=== PATIENT | female | born 1970 | race Caucasian/White ===

== ENCOUNTER 2016-09-22 11:43 | Emergency (ER) | payer BC ==
[~2016-09-22] VITALS: Ht 170.2 cm; Wt 84.5 kg
[~2016-09-22 11:43] MED LIST: HYDR-3129 PO
[2016-09-22 11:50] VITALS: BP 123/88; PULSE 77; RESP 16; TEMP 98.5; O2SAT 98
[2016-09-22] MEDS ORDERED: LISI10TA3 PO (12:02)
[2016-09-22] MEDS ORDERED: OMEP20TA PO (12:02)
[2016-09-22] MEDS ORDERED: HYDR-3533 PO (12:02)
--- NOTE | 2016-09-22 12:19 | PD ---
HPI Chief Complaint: Injury Time Seen by Provider: 12:08 Travel History International Travel<30 days: No Contact w/Intl Traveler<30days: No Traveled to known affect area: No History of Present Illness HPI 46-year-old female complains of left hand pain. Patient states that she had a metal chain around the left hand and was holding her dog 2 days ago. Patient states that the dog took off and the metal chain squeezed her left hand. Patient states that she had persistent sharp pain localized to left hand especially over the fourth and fifth metacarpals since then. Patient denies any other injury. On a scale of 1-10 the pain is a 7. PFSH Past Medical History Arthritis: Yes Blood Disorders: No Anxiety: Yes Depression: No Cancer: No Cardiovascular Problems: Yes Diabetes: No Diminished Hearing: No Endocrine: No Gastrointestinal Disorders: No Glaucoma: No Genitourinary: No Hepatitis: No Hiatal Hernia: No Hypertension: Yes Immune Disorder: No Implanted Vascular Access Dvce: No Musculoskeletal: Yes (CHRONIC BACK PAIN) Neurologic: No Psychiatric: No Reproductive: Yes (S/P HYSTERECTOMY) Respiratory: No Thyroid Disease: No ?: Not Menopausal: Yes : 6 Para: 3 Miscarriage: 3 : 0 Ovarian Cysts: Yes (LEFT OVARIAN CYST) Dilation and Curettage (D&C): Yes (X6) Past Surgical History Section: Yes (XE) Gynecologic Surgery: Yes (D&C-C SECTION X 3-LAPAROSCOPY FOR ADHESION) Hysterectomy: Yes Pacemaker: No Other Surgery: Yes Social History Alcohol Use: Yes (OCCASIONALLY) Tobacco Use: No (quit 2013) Substance Use: No Allergies-Medications (Allergen,Severity, Reaction): Coded Allergies: Dilaudid (Verified Allergy, Severe, hives, 09/22/16) Dimetapp (Verified Allergy, Severe, Hives, 09/22/16) Reported Meds & Prescriptions Reported Meds & Active Scripts Active Reported Omeprazole 20 Mg Tab 20 Mg PO DAILY Lisinopril 10 Mg Tab 10 Mg PO DAILY Lortab (Hydrocodone-Acetaminophen) 5-325 Mg Tab 1 Tab PO Q6H PRN Review of Systems General / Constitutional: No: Fever Eyes: No: Visual changes HENT: No: Headaches Cardiovascular: No: Chest Pain or Discomfort Respiratory: No: Shortness of Breath Gastrointestinal: No: Abdominal Pain Genitourinary: No: Dysuria Musculoskeletal: Positive: Pain Skin: No Rash Neurologic: No: Weakness Psychiatric: No: Depression Endocrine: No: Polydipsia Hematologic/Lymphatic: No: Easy Bruising Physical Exam Narrative GENERAL: Well-nourished, well-developed patient. SKIN: Focused skin assessment warm/dry. HEAD: Normocephalic. EYES: No scleral icterus. No injection or drainage. NECK: Supple, trachea midline. No JVD or lymphadenopathy. CARDIOVASCULAR: Regular rate and rhythm without murmurs, gallops, or rubs. RESPIRATORY: Breath sounds equal bilaterally. No accessory muscle use. GASTROINTESTINAL: Abdomen soft, non-tender, nondistended. MUSCULOSKELETAL: No cyanosis, or edema. BACK: Nontender without obvious deformity. No CVA tenderness. Patient has moderate tenderness to palpation left hand fourth and fifth metacarpal area with mild soft tissue swelling noted. Full range of motion of the fingers. Data Data Last Documented VS Vital Signs Date Time Temp Pulse Resp B/P Pulse Ox O2 Delivery O2 Flow Rate FiO2 09/22/16 11:57 98 Room Air 09/22/16 11:50 98.5 77 16 123/88 Orders Hand, Complete ([id number]) (09/22/16 12:11) Splint Or Brace Apply/Monitor (09/22/16 13:10) MDM Medical Decision Making Medical Screen Exam Complete: Yes Emergency Medical Condition: Yes Interpretation(s) Last Impressions Hand X-Ray 09/22/16 1211 Signed Impressions: Service Date/Time: , September 22, 2016 12:18 - CONCLUSION: No acute fracture or joint dislocation. Mike Hughes MD Differential Diagnosis Differential diagnosis including contusion, fracture. Narrative Course 46-year-old female with left hand injury. Diagnosis Primary Impression: Contusion of left hand Qualified Code: S60.222A - Contusion of left hand, initial encounter Patient Instructions: General Instructions Additional Instructions: Take medication as needed for pain. Follow-up with orthopedist if persistent problem. Med/Other Pt SpecificInfo: Prescription(s) given Scripts Tramadol (Ultram)50 Mg Tab50 Mg PO Q6H PRN (PAIN) #20 TAB Ref 0 Prov:Yifan Cabello MD 09/22/16 Meloxicam (Mobic)15 Mg Tab15 Mg PO DAILY #20 TAB Prov:Yifan Cabello MD 09/22/16 Disposition: 01 DISCHARGE HOME Condition: Stable Yifan Cabello MD Sep 22, 2016 12:19
--- NOTE | 2016-09-22 12:59 | RADRPT ---
EXAM DATE/TIME: 09/22/2016 12:18 [facility] COMPARISON: No previous studies available for comparison. INDICATIONS : Left hand pain, dog leash was wrapped around her hand and dog took off and pulled her. MEDICAL HISTORY : None. SURGICAL HISTORY : None. ENCOUNTER: Initial ACUITY: 3 days PAIN SCORE: 4/10 LOCATION: Left hand 4th and 5th metacarpal FINDINGS: Three view examination of the left hand demonstrates no soft tissue swelling, dislocation, or fractur e. The carpal bones appear intact. The interphalangeal and metacarpophalangeal joints are intact. Bony mineralization is normal. CONCLUSION: No acute fracture or joint dislocation. Mike Hughes MD on September 22, 2016 at 12:56 Board Certified Radiologist. This report was verified electronically.
[2016-09-22] MEDS ORDERED: MOBI15TA PO (13:12)
[2016-09-22] MEDS ORDERED: ULTR50TA5 PO (13:12)
== END 2016-09-22 13:19 | disposition home or self-care (01) ==
LOC: PHEFT 11:43
DX: S60.222A Contusion of left hand, initial encounter (principal); W23.0XXA Caught, crushed, jammed, or pinched between moving objects, initial encounter; Y93.K1 Activity, walking an animal
CPT/HCPCS: 73130; 99284

== ENCOUNTER 2016-12-06 02:43 | Observation (INO) | payer BC ==
[~2016-12-06] VITALS: Ht 170.2 cm; Wt 83.6 kg
[2016-12-06] VITALS (15 sets, daily range): BP systolic 125–206; BP diastolic 77–114; PULSE 69–86; RESP 16–20; TEMP 97.6–98.4; O2SAT 95–100
[~2016-12-06 02:43] MED LIST changes: -HYDR-3129 PO; +HYDR-3533 PO; +LISI10TA3 PO; +MOBI15TA PO; +OMEP20TA PO; +ULTR50TA5 PO
[2016-12-06] MEDS ORDERED: ASPIRIN 81 MG CHEW TAB PO SCH (03:30)
[2016-12-06] MEDS ORDERED: NITROGLYCERIN 0.4 MG SL 25 TABS/BTL SL PRN (03:30)
[2016-12-06 03:37] LABS: CHLORIDE 102 MEQ/L (98-107); POTASSIUM 3.6 MEQ/L (3.5-5.1); SODIUM (NA) 136 MEQ/L (136-145)
[2016-12-06 03:38] LABS: BASOPHIL # 0.1 TH/MM3 (0-0.2); EOSINOPHIL # 0.2 TH/MM3 (0-0.4); EOSINOPHIL % 2.5 % (0.0-4.0); HEMO FLAGS DIFF FINAL; LYMPHOCYTE # 2.7 TH/MM3 (1.0-4.8); MEAN CELL VOLUME 85.3 FL (80.0-100.0); MEAN CORPUSCULAR HEMOGLOBIN 28.7 PG (27.0-34.0); MEAN CORPUSCULAR HGB CONC 33.7 % (32.0-36.0); MONO % 9.6 % (0.0-8.0); NEUT % 52.9 % (16.0-70.0); PLATELET COUNT 274 TH/MM3 (150-450); RED BLOOD COUNT 4.93 MIL/MM3 (4.00-5.30); RED CELL DISTRIBUTION WIDTH 12.6 % (11.6-17.2); WHITE BLOOD COUNT 7.8 TH/MM3 (4.0-11.0)
[2016-12-06 03:40] LABS: ANION GAP 8 MEQ/L (5-15); BICARBONATE 25.7 MEQ/L (21.0-32.0); BLOOD UREA NITROGEN 16 MG/DL (7-18)
[2016-12-06 03:41] LABS: APTT (PATIENT) 29.6 SEC (24.3-30.1); PROTHROMBIN TIME - PATIENT 11.2 SEC (9.8-11.6)
[2016-12-06 03:44] LABS: GLOMERULAR FILTRATION RATE 84 ML/MIN (>89)
[2016-12-06 03:58] LABS: CREATINE KINASE 45 U/L (26-192)
--- NOTE | 2016-12-06 04:00 | PD ---
HPI Chief Complaint: Chest Pain Time Seen by Provider: 03:58 Travel History International Travel<30 days: No Contact w/Intl Traveler<30days: No Traveled to known affect area: No History of Present Illness HPI 46-year-old female presents to the emergency department by private transportation for complaint of intermittent anterior chest chest pain since midnight. Patient states that she attempted taking a shower and some antacid but did not take any aspirin prior to arrival to the emergency for. Patient has history of hypertension but denies dyslipidemia or diabetes. Patient also has family history of cardiovascular disease. Currently pain is much 2/10 intensity at worst is 11/10 in intensity. Nausea no vomiting shortness of breath sweats referred pain to the back but no referred pain to neck jaw shoulders or arms or abdomen. Abdomen is nontender. Hematemesis or coffee- ground emesis no bilious emesis. No flank pain or dysuria or hematuria. Unable to identify exacerbating or alleviating factors. PFSH Past Medical History Narrative Medical Hypertension arthritis anxiety Arthritis: Yes Blood Disorders: No Anxiety: Yes Depression: No Cancer: No Cardiovascular Problems: Yes Diabetes: No Diminished Hearing: No Diverticulitis: Yes Endocrine: No Gastrointestinal Disorders: No Glaucoma: No Genitourinary: No Hepatitis: No Hiatal Hernia: No Hypertension: Yes Immune Disorder: No Implanted Vascular Access Dvce: No Musculoskeletal: Yes (CHRONIC BACK PAIN) Neurologic: No Psychiatric: No Reproductive: Yes (S/P HYSTERECTOMY) Respiratory: No Thyroid Disease: No Influenza Vaccination: No ?: Not Menopausal: Yes : 6 Para: 3 Miscarriage: 3 : 0 Ovarian Cysts: Yes (LEFT OVARIAN CYST) Dilation and Curettage (D&C): Yes (X6) Past Surgical History Section: Yes (XE) Gynecologic Surgery: Yes (D&C-C SECTION X 3-LAPAROSCOPY FOR ADHESION) Hysterectomy: Yes Pacemaker: No Other Surgery: Yes Social History Alcohol Use: Yes (OCCASIONALLY) Tobacco Use: No (quit 2013) Substance Use: No Allergies-Medications (Allergen,Severity, Reaction): Coded Allergies: brompheniramine (Verified Allergy, Severe, Hives, 12/06/16) hydromorphone (Verified Allergy, Severe, hives, 12/06/16) phenylpropanolamine (Verified Allergy, Severe, Hives, 12/06/16) Reported Meds & Prescriptions Reported Meds & Active Scripts Active Reported Wellbutrin Xl 24 HR (Bupropion HCl) 150 Mg Tab 150 Mg PO DAILY Omeprazole 20 Mg Tab 20 Mg PO DAILY Lisinopril 10 Mg Tab 10 Mg PO DAILY Lortab (Hydrocodone-Acetaminophen) 5-325 Mg Tab 1 Tab PO Q6H PRN Review of Systems Except as stated in HPI: all other systems reviewed are Neg Physical Exam Narrative GENERAL: Well-developed well-nourished male in no acute distress no respiratory distress; GCS 15 SKIN: Warm and dry. HEAD: Normocephalic. EYES: No scleral icterus. No injection or drainage. NECK: Supple, trachea midline. No JVD or lymphadenopathy. CARDIOVASCULAR: Regular rate and rhythm without murmurs, gallops, or rubs. Chest wall: Nontender to palpation RESPIRATORY: Breath sounds equal bilaterally. No accessory muscle use. GASTROINTESTINAL: Abdomen soft, non-tender, nondistended. MUSCULOSKELETAL: No cyanosis, or edema. BACK: Nontender without obvious deformity. No CVA tenderness. Data Data Last Documented VS Vital Signs Date Time Temp Pulse Resp B/P (MAP) Pulse Ox O2 Delivery O2 Flow Rate FiO2 12/06/16 05:00 75 16 144/81 (102) 98 Room Air 12/06/16 02:50 98.4 Orders Orders Aspirin Chew (Aspirin Chew) (12/06/16 03:30) Basic Metabolic Panel (Bmp) (12/06/16 03:26) Ckmb (Isoenzyme) Profile (12/06/16 03:26) Magnesium (Mg) (12/06/16 03:26) Troponin I (12/06/16 03:26) Act Partial Throm Time (Ptt) (12/06/16 03:26) Prothrombin Time / Inr (Pt) (12/06/16 03:26) Nitroglycerin Sl (Nitrostat Sl) (12/06/16 03:30) Complete Blood Count With Diff (12/06/16 03:30) Chest, Single Ap (12/06/16 ) Admit Order (Ed Use Only) (12/06/16 ) ^ Saline Lock (12/06/16 04:58) Resp Oxygen Berto C Titrat 1-4 L (12/06/16 ) Notify Dr: Other (12/06/16 04:58) Sodium Chloride 0.9% Flush (Ns Flush) (12/06/16 09:00) Sodium Chloride 0.9% Flush (Ns Flush) (12/06/16 05:00) Place In Observation (12/06/16 04:58) Activity Bed Rest With Brp (12/06/16 04:58) Vital Signs (Adult) Q4H (12/06/16 04:58) Cardiac Rhythm .As Directed (12/06/16 04:58) Notify Dr: Other .PRN (12/06/16 04:58) Notify Dr. Parameters (12/06/16 04:58) Resp Oxygen Nasal Cannula (12/06/16 ) Diet Npo (12/06/16 Breakfast) Ckmb (Isoenzyme) Profile (12/06/16 06:00) Ckmb (Isoenzyme) Profile (12/06/16 09:00) Troponin I (12/06/16 06:00) Troponin I (12/06/16 09:00) Electrocardiogram (12/06/16 06:00) Electrocardiogram (12/06/16 09:00) ^ Obtain (12/06/16 04:58) Sodium Chloride 0.9% Flush (Ns Flush) (12/06/16 05:00) Sodium Chloride 0.9% Flush (Ns Flush) (12/06/16 09:00) Outbound Telemarketing Representative / Telemetry [place].Q8H (12/06/16 04:58) Labs Laboratory Tests Test 12/06/16 03:00 White Blood Count 7.8 TH/MM3 Red Blood Count 4.93 MIL/MM3 Hemoglobin 14.1 GM/DL Hematocrit 42.0 % Mean Corpuscular Volume 85.3 FL Mean Corpuscular Hemoglobin 28.7 PG Mean Corpuscular Hemoglobin Concent 33.7 % Red Cell Distribution Width 12.6 % Platelet Count 274 TH/MM3 Mean Platelet Volume 8.9 FL Neutrophils (%) (Auto) 52.9 % Lymphocytes (%) (Auto) 34.0 % Monocytes (%) (Auto) 9.6 % Eosinophils (%) (Auto) 2.5 % Basophils (%) (Auto) 1.0 % Neutrophils # (Auto) 4.0 TH/MM3 Lymphocytes # (Auto) 2.7 TH/MM3 Monocytes # (Auto) 0.8 TH/MM3 Eosinophils # (Auto) 0.2 TH/MM3 Basophils # (Auto) 0.1 TH/MM3 CBC Comment DIFF FINAL Differential Comment Prothrombin Time 11.2 SEC Prothromb Time International Ratio 1.0 RATIO Activated Partial Thromboplast Time 29.6 SEC Blood Urea Nitrogen 16 MG/DL Creatinine 0.74 MG/DL Random Glucose 98 MG/DL Calcium Level 8.8 MG/DL Magnesium Level 2.0 MG/DL Sodium Level 136 MEQ/L Potassium Level 3.6 MEQ/L Chloride Level 102 MEQ/L Carbon Dioxide Level 25.7 MEQ/L Anion Gap 8 MEQ/L Estimat Glomerular Filtration Rate 84 ML/MIN Total Creatine Kinase 45 U/L Troponin I LESS THAN 0.02 NG/ML MDM Medical Decision Making Medical Screen Exam Complete: Yes Emergency Medical Condition: Yes Medical Record Reviewed: Yes Interpretation(s) EKG: Normal sinus rhythm rate [address] elevation or injury pattern change noted Differential Diagnosis Chest pain, atypical chest pain, ACS, [place], esophageal spasm, biliary colic, gastritis, cholecystectomy Narrative Course Patient placed on lunchroom monitor IV access obtained specimens collected and sent for resulting patient administered aspirin 162 mg times one dose along with sublingual nitroglycerin every 5 minutes as needed for chest pain and to hold for systolic pressure less than 100 mmHg or greater EKG sinus rhythm no acute injury pattern change first of cardiac enzymes returned within normal range; chest x-ray shows no evidence of pneumothorax or infiltrate. CBC & BMP Diagram 12/06/16 03:00 Calcium Level 8.8, Magnesium Level 2.0 Chest pain-free asymptomatic after 2 sublingual nitroglycerin patient is aware of lab results including normal range values of the cardiac enzymes Plan will be to admit to chest pain center per protocol patient risk factors hypertension family history of early onset heart disease. Physician Communication Physician Communication [facility] per protocol Diagnosis Primary Impression: Chest pain Admitting Information Admitting Physician Requests: Observation Mone Ferguson MD Dec 06, 2016 04:00
[2016-12-06] MEDS ORDERED: BUPR150XL PO (04:07)
[2016-12-06] MEDS ORDERED: SODIUM CHLORIDE 0.9% FLUSH 10 ML FLUSH IV FLUSH PRN (05:00)
[2016-12-06] MEDS ORDERED: SODIUM CHLORIDE 0.9% FLUSH 10 ML FLUSH IVF PRN (05:00)
[2016-12-06 06:40] LABS: CREATINE KINASE 33 U/L (26-192)
--- NOTE | 2016-12-06 08:28 | RADRPT ---
EXAM DATE/TIME: 12/06/2016 03:22 [facility] COMPARISON: No previous studies available for comparison. INDICATIONS : Chest pain. MEDICAL HISTORY : Hypertension. SURGICAL HISTORY : None. ENCOUNTER: Initial ACUITY: 1 day PAIN SCORE: 6/10 LOCATION: Left chest FINDINGS: A single view of the chest demonstrates the lungs to be symmetrically aerated without evidence of mas s, infiltrate or effusion. The cardiomediastinal contours are unremarkable. Osseous structures are intact. CONCLUSION: Normal examination. Seth Smalls Jr., MD on December 06, 2016 at 4:48 Board Certified Radiologist. This report was verified electronically.
[2016-12-06] MEDS: SODIUM CHLORIDE 0.9% FLUSH 10 ML FLUSH IV FLUSH SCH ×2 (09:00→20:28)
[2016-12-06] MEDS ORDERED: SODIUM CHLORIDE 0.9% FLUSH 10 ML FLUSH IV FLUSH SCH (09:00)
[2016-12-06 09:27] LABS: CREATINE KINASE 35 U/L (26-192)
--- NOTE | 2016-12-06 13:55 | EKG ---
Date Performed: 12/06/2016 Time Performed: 02:53:55 PTAGE: 46 years EKG: Sinus rhythm MINIMAL ST DEPRESSION BORDERLINE ECG NO PREVIOUS TRACING DOCTOR: Gustavo Castano Interpretating Date/Time 12/06/2016 13:54:31
--- NOTE | 2016-12-06 14:00 | EKG ---
Date Performed: 12/06/2016 Time Performed: 08:49:30 PTAGE: 46 years EKG: Sinus rhythm NORMAL ECG Compared to prior tracing no significant change PREVIOUS TRACING : 12/06/2016 06.04 DOCTOR: Gustavo Castano Interpretating Date/Time 12/06/2016 13:59:21
--- NOTE | 2016-12-06 14:00 | EKG ---
Date Performed: 12/06/2016 Time Performed: 06:04:52 PTAGE: 46 years EKG: Sinus rhythm NONSPECIFIC T-WAVE ABNORMALITY BORDERLINE ECG NO PREVIOUS TRACING DOCTOR: Gustavo Castano Interpretating Date/Time 12/06/2016 13:59:13
--- NOTE | 2016-12-06 14:56 | HHI.HP ---
[facility] Primary Care Physician Stoney Santos M.D. Admission Diagnosis chest pain Diagnoses: (1) Chest pain Diagnosis: Principal (2) Hypertensive urgency Diagnosis: Principal Chief Complaint: chest pain Travel History International Travel<30 Days: No Contact w/Intl Traveler <30 Da: No Traveled to Known Affected Are: No History of Present Illness Written by Thalia Stone PA-C acting as scribe for Dr. Medina on 12/06/16 at 1456. 46-year-old female with history of hypertension and chronic back pain is admitted chest pain center. Patient states she had pain in the right breast which radiated to the epigastric region starting at midnight last night. She states she waited but then it occurred again at 2:30 AM. She describes it's a "tightening" and felt like something was wrapped around her "crushing" and "pulling". She states the pain would come and go lasting 3-8 minutes but then subside. She states it stopped after she came to the ER stating nitroglycerin helped only having a few more minor episodes afterward, but it is not documented that patient received Nitro. She denies any alleviating or exacerbating factors. She denies any associated diaphoresis, palpitations, shortness of breath, or nausea. She takes blood pressure medication and states her blood pressure has been up "a little high". Patient admits to having some left breast pain that started today. She states she gets her yearly mammogram and either had it in May or is due for it in one month. No personal history of diabetes or high cholesterol. Review of Systems Except as stated in HPI: all other systems reviewed are Neg Past Family Social History Past Medical History Hypertension Bulging discs L4-5 Occasional heartburn States she was prescribed Wellbutrin for "stress" Past Surgical History 3 C-sections Multiple D&Cs Hysterectomy Laparoscopy for adhesions Reported Medications Wellbutrin Xl 24 HR (Bupropion HCl) 150 Mg Tab 150 Mg PO DAILY Omeprazole 20 Mg Tab 20 Mg PO DAILY PRN Lisinopril 10 Mg Tab 10 Mg PO DAILY Lortab (Hydrocodone-Acetaminophen) 5-325 Mg Tab 1 Tab PO Q6H PRN Allergies: Coded Allergies: brompheniramine (Verified Allergy, Severe, Hives, 12/06/16) hydromorphone (Verified Allergy, Severe, hives, 12/06/16) phenylpropanolamine (Verified Allergy, Severe, Hives, 12/06/16) Family History Grandmother of MO at age 57. Mother of breast cancer at age 48. Social History Occasional alcohol use. Quit smoking cigarettes 4 years ago. Prior to this smoked less than one pack per day for approximately 20 years. Denies illicit drug use. Physical Exam Vital Signs Vital Signs Date Time Temp Pulse Resp B/P (MAP) Pulse Ox O2 Delivery O2 Flow Rate FiO2 12/06/16 12:00 97.6 70 17 142/95 (111) 97 12/06/16 11:33 96 12/06/16 08:00 98.1 79 17 125/82 (96) 96 12/06/16 08:00 81 12/06/16 07:38 12/06/16 07:03 75 18 136/84 (101) 98 Room Air 12/06/16 06:58 75 12/06/16 05:00 75 16 144/81 (102) 98 Room Air 12/06/16 03:59 72 18 130/77 (94) 97 Room Air 12/06/16 03:28 79 18 137/83 (101) 96 Room Air 12/06/16 03:22 79 20 158/91 (113) 97 Room Air 12/06/16 03:17 86 20 141/91 (108) 97 Room Air 12/06/16 03:12 83 20 167/98 (121) 95 Room Air 12/06/16 02:55 86 20 100 Room Air 12/06/16 02:50 98.4 86 20 206/114 (144) 100 Physical Exam GENERAL: This is a pleasant well-nourished, well-developed patient, in no apparent distress. SKIN: No rashes, ecchymoses or lesions. Warm and dry. HEAD: Atraumatic. Normocephalic. EYES:No scleral icterus. No injection or drainage. NECK: Trachea midline. BREAST EXAM: Right breast with no palpable masses. Tender over left lateral breast. ~0.5 cm x 0.3 cm hard nodule at the 6 o'clock position below the left nipple. CARDIOVASCULAR: Regular rate and rhythm without murmurs, gallops, or rubs. RESPIRATORY: Clear to auscultation. Breath sounds equal bilaterally. No wheezes , rales, or rhonchi. GASTROINTESTINAL: Normoactive bowel sounds. Abdomen soft, non-tender, nondistended. MUSCULOSKELETAL: No lower extremity edema or calf pain bilaterally. NEUROLOGICAL: Awake and alert. Motor grossly within normal limits. Normal speech. PSYCHIATRIC: Normal mood and affect. Laboratory Laboratory Tests Test 12/06/16 03:00 12/06/16 06:10 12/06/16 08:45 White Blood Count 7.8 Red Blood Count 4.93 Hemoglobin 14.1 Hematocrit 42.0 Mean Corpuscular Volume 85.3 Mean Corpuscular Hemoglobin 28.7 Mean Corpuscular Hemoglobin Concent 33.7 Red Cell Distribution Width 12.6 Platelet Count 274 Mean Platelet Volume 8.9 Neutrophils (%) (Auto) 52.9 Lymphocytes (%) (Auto) 34.0 Monocytes (%) (Auto) 9.6 Eosinophils (%) (Auto) 2.5 Basophils (%) (Auto) 1.0 Neutrophils # (Auto) 4.0 Lymphocytes # (Auto) 2.7 Monocytes # (Auto) 0.8 Eosinophils # (Auto) 0.2 Basophils # (Auto) 0.1 CBC Comment DIFF FINAL Differential Comment Prothrombin Time 11.2 Prothromb Time International Ratio 1.0 Activated Partial Thromboplast Time 29.6 Blood Urea Nitrogen 16 Creatinine 0.74 Random Glucose 98 Calcium Level 8.8 Magnesium Level 2.0 Sodium Level 136 Potassium Level 3.6 Chloride Level 102 Carbon Dioxide Level 25.7 Anion Gap 8 Estimat Glomerular Filtration Rate 84 Total Creatine Kinase 45 33 35 Troponin I LESS THAN 0.02 LESS THAN 0.02 LESS THAN 0.02 Result Diagram: 12/06/16 0300 12/06/16 0300 Imaging Last Impressions Chest X-Ray 12/06/16 0000 Signed Impressions: Service Date/Time: Tuesday, December 06, 2016 03:22 - CONCLUSION: Normal examination. MD Chyna Wilde Jr. VTE Risk Assessment Chyna VTE Risk Assessment: Mod/High Risk (score >= 2) Caprini Risk Assessment Model Point Value = 1 Point Value = 2 Point Value = 3 Point Value = 5 Age 41-60 Minor surgery BMI > 25 kg/m2 Swollen legs Varicose veins or History of unexplained or recurrent spontaneous Oral contraceptives or hormone replacement Sepsis (< 1 month) Serious lung disease, including pneumonia (< 1 month) Abnormal pulmonary function Acute myocardial infarction Congestive heart failure (< 1 month) History of inflammatory bowel disease Medical patient at bed rest Age 61-74 Arthroscopic surgery Major open surgery (> 45 min) Laparoscopic surgery (> 45 min) Malignancy Confined to bed (> 72 hours) Immobilizing plaster cast Central venous access Age >= 75 History of VTE Family history of VTE Factor V Leiden Prothrombin 29256P Lupus anticoagulant Anticardiolipin antibodies Elevated serum homocysteine Heparin-induced thrombocytopenia Other congenital or acquired thrombophilia Stroke (< 1 month) Elective arthroplasty Hip, pelvis, or leg fracture Acute spinal cord injury (< 1 month) Prophylaxis Regimen Total Risk Factor Score Risk Level Prophylaxis Regimen 0-1 Low Early ambulation 2 Moderate Order ONE of the following: *Sequential Compression Device (SCD) *Heparin 5000 units SQ BID 3-4 Higher Order ONE of the following medications: *Heparin 5000 units SQ TID *Enoxaparin/Lovenox 40 mg SQ daily (WT < 150 kg, CrCl > 30 mL/min) *Enoxaparin/Lovenox 30 mg SQ daily (WT < 150 kg, CrCl > 10-29 mL/min) *Enoxaparin/Lovenox 30 mg SQ BID (WT < 150 kg, CrCl > 30 mL/min) AND/OR *Sequential Compression Device (SCD) 5 or more Highest Order ONE of the following medications: *Heparin 5000 units SQ TID (Preferred with Epidurals) *Enoxaparin/Lovenox 40 mg SQ daily (WT < 150 kg, CrCl > 30 mL/min) *Enoxaparin/Lovenox 30 mg SQ daily (WT < 150 kg, CrCl > 10-29 mL/min) *Enoxaparin/Lovenox 30 mg SQ BID (WT < 150 kg, CrCl > 30 mL/min) AND *Sequential Compression Device (SCD) Assessment and Plan Assessment and Plan 46-year-old female with: Chest pain: Right breast radiating to epigastric region with some reproducible left breast tenderness today. EKGs 3 personally interpreted with normal sinus rhythm and no evidence of ischemia. Chest x-ray personally interpreted without acute abnormality. Troponin 3 less than 0.02. CK 3 normal. CBC unremarkable. -Patient received 162 mg of aspirin early this morning -Nitroglycerin as needed for chest pain -Telemetry -Patient is unable to jog but despite chronic back issues states she can walk on an incline and is willing to perform the treadmill test as she walks daily. ETT ordered. Hypertensive urgency/HTN: BP 206/114 on arrival. Improved today. -Continue Lisinopril Continue other home meds. DVT prophylaxis: SCDs. This note was transcribed by piper Stone. I, Dr. Chau Fuller personally performed the history, physical exam, and medical decision making; and confirmed the accuracy of the information in the transcribed note. Authenticated by Dr. Chau Fuller on 12/06/16 at 15:10. Discussed Condition With patient Thalia Stone Dec 06, 2016 14:56 Chau Kline MD Dec 06, 2016 17:02
[2016-12-06] MEDS ORDERED: ACETAMINOPHEN/HYDROcodone 325 MG/5 MG TAB PO PRN (15:45)
[2016-12-06] MEDS: buPROPion HCL 150 MG SUSTAINED RELEASE TAB PO SCH (16:10)
[2016-12-06] MEDS ORDERED: ACETAMINOPHEN 325 MG TAB PO PRN (20:15)
[2016-12-06] MEDS ORDERED: cloNIDine HCL 0.1 MG TAB PO PRN (21:00)
[2016-12-07] VITALS: BP 151/89; PULSE 84; RESP 20; TEMP 98.6; O2SAT 97
[2016-12-07 04:00] VITALS: BP 135/83; PULSE 79; RESP 20; TEMP 97.7; O2SAT 97
[2016-12-07] MEDS ORDERED: REGADENOSON INJ 0.4 MG/5 ML SYR IV ONE (05:01)
[2016-12-07 07:00] VITALS: PULSE 101
[2016-12-07 08:00] VITALS: BP 153/85; PULSE 79; RESP 18; TEMP 98.3; O2SAT 94
[2016-12-07] MEDS ORDERED: PANTOPRAZOLE SOD 20 MG DELAYED RELEASE TAB PO SCH (09:00)
[2016-12-07] MEDS ORDERED: LISINOPRIL 10 MG TAB PO SCH (09:00)
[2016-12-07 12:00] VITALS: BP 141/82; PULSE 81; RESP 17; TEMP 98.2; O2SAT 97
[2016-12-07] MEDS: SODIUM CHLORIDE 0.9% FLUSH 10 ML FLUSH IV FLUSH SCH (12:09)
[2016-12-07] MEDS: buPROPion HCL 150 MG SUSTAINED RELEASE TAB PO SCH ×2 (12:09→12:10)
--- NOTE | 2016-12-07 12:12 | RADRPT ---
EXAM DATE/TIME: 12/07/2016 10:52 [place] COMPARISON: No previous studies available for comparison. INDICATIONS : Chest pain with nausea. Abnormal exercise treadmill test. DOSE: 27.2 mCi Tc99m Myoview at stress. 8.7 mCi Tc99m Myoview at rest. 0.4 mg Lexiscan STRESS SYMPTOMS: Dyspnea, facial flush and nausea. EJECTION FRACTION: 57% MEDICAL HISTORY : Hypertension. SURGICAL HISTORY : Hysterectomy. ENCOUNTER: Initial ACUITY: 1 day PAIN SCALE: 7/10 LOCATION: chest TECHNIQUE: The patient underwent pharmacologic stress with infusion of prescribed dose. Continuous ECG tracing was monitored during stress. Gated SPECT imaging was performed after stress and conventional SPECT i maging was performed at rest. The examination was performed on a SPECT/CT scanner, both attenuation and non-corrected datasets were reviewed. FINDINGS: Moderate gut activity does obscure the inferior wall. At stress the best perfused myocardium is the lateral wall followed by the septum. There is no redis tribution to suggest ischemia of inferior wall is obscured by gut. Correlation is suggested. The ejection fraction is 57% with normal wall motion. CONCLUSION: Negative for stress-induced ischemia however do not does obscure the inferior wall. Ejection fractio n 57% with normal wall motion. Correlation is suggested given the abnormal treadmill. RISK CATEGORY: Low (<1% Annual Mortality Rate) Kd Abreu MD FACR on December 07, 2016 at 12:09 Board Certified Radiologist. This report was verified electronically.
--- NOTE | 2016-12-07 12:26 | HHI.DCPOC ---
Discharge Care Plan Diagnosis: (1) Chest pain (2) Hypertensive urgency Goals to Promote Your Health * To prevent worsening of your condition and complications * To maintain your health at the optimal level Directions to Meet Your Goals Take your medications as prescribed Follow your dietary instruction Follow activity as directed Keep your appointments as scheduled Take your immunizations and boosters as scheduled If your symptoms worsen call your PCP, if no PCP go to Urgent Care Center or Emergency Room Smoking is Dangerous to Your Health. Avoid second hand smoke Call the 24-hour hour crisis hotline for domestic abuse at Bernadette Barnhart MD Dec 07, 2016 12:26
--- NOTE | 2016-12-07 12:30 | HHI.DS ---
[facility] Discharge Summary Admission Date Dec 06, 2016 at 05:00 Discharge Date: Dec 07, 2016 Admitting Diagnosis chest pain (1) Chest pain ICD Code: R07.9 - Chest pain, unspecified Diagnosis: Principal Status: Acute (2) Hypertensive urgency ICD Code: I16.0 - Hypertensive urgency Diagnosis: Principal Procedures nuclear st Exercise ST Brief History - From Admission Written by Thalia Stone PA-C acting as scribe for Dr. Medina on 12/06/16 at 1456. 46-year-old female with history of hypertension and chronic back pain is admitted chest pain center. Patient states she had pain in the right breast which radiated to the epigastric region starting at midnight last night. She states she waited but then it occurred again at 2:30 AM. She describes it's a "tightening" and felt like something was wrapped around her "crushing" and "pulling". She states the pain would come and go lasting 3-8 minutes but then subside. She states it stopped after she came to the ER stating nitroglycerin helped only having a few more minor episodes afterward, but it is not documented that patient received Nitro. She denies any alleviating or exacerbating factors. She denies any associated diaphoresis, palpitations, shortness of breath, or nausea. She takes blood pressure medication and states her blood pressure has been up "a little high". Patient admits to having some left breast pain that started today. She states she gets her yearly mammogram and either had it in May or is due for it in one month. No personal history of diabetes or high cholesterol. CBC/BMP: 12/06/16 0300 12/06/16 0300 Significant Findings Laboratory Tests Test 12/06/16 03:00 12/06/16 06:10 12/06/16 08:45 Monocytes (%) (Auto) 9.6 % (0.0-8.0) Estimat Glomerular Filtration Rate 84 ML/MIN (>89) Troponin I LESS THAN 0.02 NG/ML LESS THAN 0.02 NG/ML LESS THAN 0.02 NG/ML Imaging Last Impressions Myocardial Perfusion Scan Nuc Med 12/07/16 0600 Signed Impressions: Service Date/Time: Wednesday, December 07, 2016 10:52 - CONCLUSION: Negative for stress-induced ischemia however do not does obscure the inferior wall. Ejection fraction 57%% with normal wall motion. Correlation is suggested given the abnormal treadmill. RISK CATEGORY: Low (<1%% Annual Mortality Rate) Kd Abreu MD FACR Chest X-Ray 12/06/16 0000 Signed Impressions: Service Date/Time: Tuesday, December 06, 2016 03:22 - CONCLUSION: Normal examination. Seth Smalls Jr., MD PE at Discharge GENERAL: This is a well-nourished, well-developed patient, in no apparent distress. CARDIOVASCULAR: Regular rate and rhythm without murmurs, gallops, or rubs. RESPIRATORY: Clear to auscultation. Breath sounds equal bilaterally. No wheezes , rales, or rhonchi. GASTROINTESTINAL: Abdomen soft, non-tender, nondistended. Normal active bowel sounds MUSCULOSKELETAL: Extremities without clubbing, cyanosis, or edema. NEURO: Alert & Oriented x4 to person, place, time, situation. Moves all ext x4 Pt update on day of discharge Patient seen today vague atypical CP this am prior to St. DC plans discussed with patient and RN Hospital Course patient seen in evaluation for atypical CP and htn urgency, BP improved Exercise ST difficult to interpret due to abnl baseline EKG, Nuclear ST low risk and neg for ischemia Ptn dc/d home Pt Condition on Discharge: Good Discharge Disposition: Discharge Home Discharge Time: <= 30 minutes Discharge Instructions DIET: Follow Instructions for: As Tolerated, No Restrictions Activities you can perform: Regular-No Restrictions Follow up Referrals: PCP Follow-up - 1 Week Continued Medications: Bupropion HCl ER 24 HR (Wellbutrin Xl 24 HR) 150 Mg Tab 150 MG PO DAILY for Control Depression, TAB 0 Refills Hydrocodone-Acetaminophen (Lortab) 5-325 Mg Tab 1 TAB PO Q6H PRN for PAIN, TAB 0 Refills Lisinopril (Lisinopril) 10 Mg Tab 10 MG PO DAILY, #30 TAB 0 Refills Omeprazole (Omeprazole) 20 Mg Tab 20 MG PO DAILY for ACID REFLUX, #30 TAB 0 Refills Bernadette Barnhart MD Dec 07, 2016 12:29
--- NOTE | 2016-12-08 10:45 | TR ---
Date Performed: 12/07/2016 Time Performed: 11:14:04 DOCTOR: Sven Shields DRUG LIST: CLINICAL HISTORY: REASON FOR TEST: ABNORMAL TREADMILL REASON FOR ENDING: OBSERVATION: CONCLUSION: Lexiscan stress test was performed under standard four minute protocol. Radionuclide was injected one minute prior to ending the test. ST depression was noted inferiorly suggesting isc hemia. Nuclear imaging and interpretation are pending. COMMENTS:
== END 2016-12-07 16:06 | disposition home or self-care (01) ==
LOC: PHED 02:43 → PHEDA 05:00 → PH3B 07:31
PROVIDERS: ADMIT Hospitalist; ATTEND Hospitalist
DX: R07.9 Chest pain, unspecified (principal); I16.0 Hypertensive urgency; R94.31 Abnormal electrocardiogram [ECG] [EKG]; M54.9 Dorsalgia, unspecified; G89.29 Other chronic pain; N64.4 Mastodynia; Z90.710 Acquired absence of both cervix and uterus; Z82.49 Family history of ischemic heart disease and other diseases of the circulatory system
CPT/HCPCS: 71010; 78452; 80048; 82550; 83735; 84484; 85025; 85610; 85730; 93005; 93017; 99285; A9502; G0378; J2785